=== PATIENT | female | born 1950 | race Asian ===

== ENCOUNTER → 2020-07-17 09:32 | Outpatient (BNVA) | payer OTHER, SELFPAY | PROVIDERS: PCP Internal Medicine; Referring Provider Internal Medicine; Visit Provider Student in an Organized Health Care Education/Training Program | DX: Z13.89 Encounter for screening for other disorder (principal) | CPT/HCPCS: Q3014 ==

== ENCOUNTER 2021-03-09 13:02 | Outpatient (REF) | payer MEDICARE, SELFPAY ==
[2021-03-09 15:14] LABS: Alanine Aminotransferase 19 U/L (0-31); Albumin Level 4.5 g/dL (3.5-5.0); Alkaline Phosphatase 52 U/L (39-117); Anion Gap 12 (12-20); Aspartate Amino Transferase 19 U/L (5-31); Bilirubin Total 0.3 mg/dL (0.0-1.0); Blood Urea Nitrogen 26 mg/dL (9-16); Calcium 9.5 mg/dL (8.4-10.2); Carbon Dioxide 28 mmol/L (22-29); Chloride 103 mmol/L (96-108); Estimated Glomerular Filt Rate > 60; Glucose Random 109 mg/dL (60-115); Potassium 4.2 mmol/L (3.3-5.1); Sodium 139 mmol/L (135-145); Total Protein 7.6 g/dL (6.5-8.0)
== END 2021-03-09 13:03 | disposition home or self-care (01) ==
LOC: HO.LAB 13:02
PROVIDERS: PCP Internal Medicine; Visit Provider Student in an Organized Health Care Education/Training Program
DX: M19.041 Primary osteoarthritis, right hand (principal); M19.042 Primary osteoarthritis, left hand
CPT/HCPCS: 36415; 80053; Q3014

== ENCOUNTER 2021-11-01 12:15 | Outpatient (REF) | payer OTHER, SELFPAY ==
[2021-11-01 14:34] LABS: Alanine Aminotransferase 14 U/L (0-31); Albumin Level 4.2 g/dL (3.5-5.0); Alkaline Phosphatase 46 U/L (39-117); Anion Gap 9 (12-20); Aspartate Amino Transferase 20 U/L (5-31); Bilirubin Total 0.2 mg/dL (0.0-1.0); Blood Urea Nitrogen 23 mg/dL (9-16); Calcium 9.4 mg/dL (8.4-10.2); Carbon Dioxide 33 mmol/L (22-29); Chloride 105 mmol/L (96-108); Estimated Glomerular Filt Rate > 60; Glucose Random 107 mg/dL (60-115); Potassium 4.2 mmol/L (3.3-5.1); Sodium 143 mmol/L (135-145); Total Protein 7.3 g/dL (6.5-8.0)
== END 2021-11-01 12:16 | disposition home or self-care (01) ==
LOC: HO.LAB 12:15
PROVIDERS: PCP Internal Medicine; Visit Provider Nurse Practitioner Family
DX: M19.041 Primary osteoarthritis, right hand (principal); M19.042 Primary osteoarthritis, left hand
CPT/HCPCS: 36415; 80053; 99212

== ENCOUNTER → 2022-05-03 13:09 | Outpatient (BNVA) | payer OTHER, SELFPAY | PROVIDERS: PCP Internal Medicine; Visit Provider Nurse Practitioner Family | DX: M19.041 Primary osteoarthritis, right hand (principal); M19.042 Primary osteoarthritis, left hand | CPT/HCPCS: 99212 ==

== ENCOUNTER 2023-02-10 13:49 | Outpatient (AMB) | payer OTHER, SELFPAY ==
[2023-02-10 13:52] VITALS: BP 116/60; PULSE 72; TEMP 36.5; O2SAT 97; BMI 24.3
--- NOTE | 2023-02-10 13:52 | MHC.OFFVIS ---
Intake Vital Signs 02/10/23 13:52 Height 4 ft 10 in Weight 116 lb 6.465 oz BMI 24.3 BP 116/60 Blood Pressure Location Lt femoral Position Sitting Pulse 72 Pulse Source Pulse Oximeter Temp 97.7 F Temp Source Skin Pulse Oximetry (%) 97 Intake Visit Reasons: bilateral hand osteoarthritis Intake Note: Pt seen today for OA follow up. 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: Yes Bow Making Machine Operator Language: Syriac Bow Making Machine Operator Name: Lacie [id number] Information Interpreted: clinical only Accompanied by: Self / Same As Patient Allergies No Known Allergies Allergy (Verified 02/10/23 14:03) Medication List - Last Reconciled 02/10/23 by Nba Proctor MD albuterol sulfate 90 mcg/actuation 0 mcg inhalation alendronate 70 mg PO QWEEK aspirin 81 mg PO DAILY atorvastatin 20 mg PO DAILY cholecalciferol (vitamin D3) (Vitamin D3) 50 mcg PO DAILY diclofenac sodium 1% (Voltaren Arthritis Pain) 2 grams topical BID levothyroxine 25 mcg PO DAILY lisinopril 20 mg PO DAILY metoprolol succinate ER 25 mg PO DAILY pantoprazole 20 mg PO DAILY prednisolone acetate 1% 0 drps ophthalmic (eye) prednisone take 4 tabs by mouth daily with breakfast for 1 week then 3 tabs daily for 1 week then 2 tabs daily for 1 week then 1 tab daily fir 1 week then stop ticagrelor (Brilinta) 90 mg PO BID HPI HPI Comments History of Present Illness Details This is a 72-year-old female with bilateral hand osteoarthritis, last seen by Isabel Farooq 04/2022. Patient is complaining of bilateral hand pain swelling and stiffness. She has morning stiffness of her hands lasting 15 minutes. Improved with putting her hand under warm order. She has been taking tramadol which does not seem to be helping at the moment. [facility], [facility] Medical History (Updated 02/10/23 @ 17:22 by Nba Proctor MD) History of lung cancer Primary osteoarthritis of hands, bilateral Social History Alcohol intake: never Patient Tobacco Use Status: Never used Tobacco Review of Systems [facility] [place] Reports arthralgias, Reports joint swelling and Reports stiffness Physical Exam Vital Signs: Last Vital Signs Temp 97.7 F 02/10/23 13:52 Pulse 72 02/10/23 13:52 BP 116/60 02/10/23 13:52 Pulse Ox 97 02/10/23 13:52 BMI result Body Mass Index 24.3 Const General: cooperative, healthy appearing and comfortable Nutritional Appearance: average body habitus Orientation/consciousness: patient oriented x3 Limitations: no limitations HEENT Head: Yes normocephalic and Yes atraumatic Resp Effort & Inspection: normal respiratory effort and able to speak in complete sentences Neuro General: patient oriented x3 Extrem Other: Bilateral swelling across the MCPs, nontender and negative MCP squeeze test Left 2nd and 4th PIP tenderness Right 2nd 3rd PIP tenderness No pain with wrist flexion and extension Osteoarthritic changes of both hands with Lashon's and Heberden's nodes normal range of motion of both elbows and shoulders No ankle swelling or tenderness Negative MTP squeeze test Assessment & Plan Assessment & Plan (1) Bilateral hand pain: Code(s): M79.641 - Pain in right hand; M79.642 - Pain in left hand Plan: This is a 72-year-old Syriac female who presents for evaluation of bilateral hand pain. She was previously diagnosed with bilateral hand osteoarthritis which was managed with tramadol and intermittent use of NSAIDs. Patient states that the tramadol is not helping. Upon evaluation patient has significant puffiness of her MCPs bilaterally. I wonder whether she has an underlying inflammatory arthritis. Will repeat bilateral hand x-rays and check comprehensive serology. Start prednisone therapeutic trial Plan I spent 30 minutes reviewing patient's chart, evaluating patient, ordering diagnostic workup, counseling patient and documenting in the chart Orders: Orders XR foot LT min 3V Today M06.9 - Rheumatoid arthritis, unspecified XR foot RT min 3V Today M06.9 - Rheumatoid arthritis, unspecified XR hand wrist LT Today M06.9 - Rheumatoid arthritis, unspecified XR hand wrist RT Today M06.9 - Rheumatoid arthritis, unspecified Complete Blood Count Auto Diff Today M06.9 - Rheumatoid arthritis, unspecified Comprehensive Met. Panel Today M06.9 - Rheumatoid arthritis, unspecified C Reactive Protein Today M06.9 - Rheumatoid arthritis, unspecified Erythrocyte Sedimentation Rate Today M06.9 - Rheumatoid arthritis, unspecified Hepatitis A,B,C Profile Today Z11.59 - Encounter for screening for other viral diseases T Spot TB Today Z11.7 - Encounter for testing for latent tuberculosis infection Immunofixation Pnl, Serum Today M06.9 - Rheumatoid arthritis, unspecified Protein Electrophoresis, Serum Today M06.9 - Rheumatoid arthritis, unspecified Rheumatoid Factor Today M06.9 - Rheumatoid arthritis, unspecified Cyclic Citrullinated Peptide Today M06.9 - Rheumatoid arthritis, unspecified Medications: New prednisone take 4 tabs by mouth daily with breakfast for 1 week then 3 tabs daily for 1 week then 2 tabs daily for 1 week then 1 tab daily fir 1 week then stop 70 tabs 0RF Coding Level of Care Code Est Pt Level 4 (97708) Diagnoses Bilateral hand pain M79.641; M79.642
== END 2023-02-10 14:41 | disposition home or self-care (01) ==
PROVIDERS: PCP Internal Medicine; Visit Provider Student in an Organized Health Care Education/Training Program
DX: M79.641 Pain in right hand (principal); M79.642 Pain in left hand
CPT/HCPCS: 99214

== ENCOUNTER 2023-02-10 13:49 | Outpatient (REF) | payer OTHER, SELFPAY ==
--- NOTE | ~2023-02-10 | XR_ITS ---
EXAMINATION: XR WRIST, LEFT XR HAND, LEFT CLINICAL INFORMATION: Rheumatoid arthritis. COMPARISON: None available. TECHNIQUE: PA, lateral, oblique, and scaphoid views of the left wrist and PA, lateral, and oblique views of the left hand FINDINGS: There are degenerative changes involving the first interphalangeal joint, the second PIP joint, the third MCP joint, and first carpal-metacarpal joint, with joint space narrowing, sclerosis, and osteophyte formation. Joint spaces otherwise appear maintained. No lytic or sclerotic bony lesion is seen. No juxta articular erosion is noted. Bony mineralization appears preserved. XR/XR hand wrist LT IMPRESSION: Degenerative changes suggesting osteoarthritis.
--- NOTE | ~2023-02-10 | XR_ITS ---
EXAMINATION: XR FOOT, RIGHT CLINICAL INFORMATION: Rheumatoid arthritis. COMPARISON: None available. TECHNIQUE: AP, lateral, and oblique views of the right foot. FINDINGS: Hallux valgus. The bones and soft tissues otherwise appear unremarkable. Bony mineralization appears preserved. No juxta articular erosion or subluxation is seen. Joint spaces appear maintained. No fracture appreciated. XR/XR foot RT min 3V IMPRESSION: No radiographic evidence of rheumatoid arthritis.
--- NOTE | ~2023-02-10 | XR_ITS ---
EXAMINATION: XR WRIST, RIGHT XR HAND, RIGHT CLINICAL INFORMATION: Rheumatoid arthritis. COMPARISON: None available. TECHNIQUE: PA, lateral, oblique, and scaphoid views of the right wrist and PA, lateral, and oblique views of the right hand FINDINGS: There are degenerative changes involving the first interphalangeal joint, the second through fourth PIP joints, the third MCP joint, and first carpal-metacarpal joint, with joint space narrowing, sclerosis, and osteophyte formation. Joint spaces otherwise appear maintained. No lytic or sclerotic bony lesion is seen. No juxta articular erosion is noted. Bony mineralization appears preserved. XR/XR hand wrist RT IMPRESSION: Degenerative changes suggesting osteoarthritis.
--- NOTE | ~2023-02-10 | XR_ITS ---
EXAMINATION: XR FOOT, LEFT CLINICAL INFORMATION: Rheumatoid arthritis. COMPARISON: None available. TECHNIQUE: AP, lateral, and oblique views of the left foot. FINDINGS: Hallux valgus. The bones and soft tissues otherwise appear unremarkable. Bony mineralization appears preserved. No juxta articular erosion or subluxation is seen. Joint spaces appear maintained. No fracture appreciated. XR/XR foot LT min 3V IMPRESSION: No radiographic evidence of rheumatoid arthritis.
[2023-02-10 15:13] LABS: MANUAL DIFF FLAG NO
[2023-02-10 16:22] LABS: Basophils Absolute Auto 0.1 X10*3/uL (0.0-0.2); Basophils Percent Auto 0.7 % (0-2); Eosinophils Absolute Auto 0.2 X10*3/uL (0.0-0.4); Eosinophils Percent Auto 2.3 % (0-4); Hematocrit 41.2 % (37.0-47.0); Hemoglobin 12.7 g/dl (12.0-16.0); Imm Gran Abs Auto 0.03 X10*3/uL (0.00-0.03); Imm Gran Pct Auto 0.4 % (0.0-0.4); Lymphocytes Absolute Auto 1.9 X10*3/uL (1.2-4.9); Lymphocytes Percent Auto 26.9 % (20-40); Mean Corpuscular HGB Conc 30.8 g/dl (31.0-35.0); Mean Corpuscular Volume 90.7 fL (80.0-98.0); Mean Platelet Volume 10.8 fL (9.4-12.3); Monocytes Absolute Auto 0.6 X10*3/uL (0.1-1.2); Monocytes Percent Auto 8.2 % (2-11); Neutrophils Absolute Auto 4.3 x10*3/uL (2.0-8.3); Neutrophils Percent Auto 61.5 % (45-73); Platelet Count 255 X10*3/uL (160-400); Red Blood Count 4.54 X10*6/uL (4.20-5.50); Red Cell Distribution Width 14.3 % (11.0-16.0); White Blood Count 6.9 X10*3/uL (4.8-10.8)
[2023-02-10 16:55] LABS: Alanine Aminotransferase 31 U/L (0-31); Albumin Level 4.5 g/dL (3.5-5.0); Alkaline Phosphatase 68 U/L (39-117); Anion Gap 16 (12-20); Aspartate Amino Transferase 29 U/L (5-31); Bilirubin Total 0.3 mg/dL (0.0-1.0); Blood Urea Nitrogen 23 mg/dL (9-16); C Reactive Protein 0.23 mg/dL (< or = 0.50); Calcium 9.8 mg/dL (8.4-10.2); Carbon Dioxide 26 mmol/L (22-29); Chloride 106 mmol/L (96-108); Estimated Glomerular Filt Rate > 60; Glucose Random 95 mg/dL (60-115); Potassium 3.8 mmol/L (3.3-5.1); Rheumatoid Factor < 13.0 IU/mL (<15.0); Sodium 144 mmol/L (135-145)
[2023-02-10 16:57] LABS: Amphetamine Screen Urine Not Detected (Not Detect); Barbiturates, Urine Not Detected (Not Detect); Benzodiazepines Screen Urine Not Detected (Not Detect); Cannabinoid Screen Urine Not Detected (Not Detect); Cocaine Screen Urine Not Detected (Not Detect); Fentanyl, urine Not Detected (Not Detect); Opiate Screen Urine Not Detected (Not Detect); Phencyclidine Screen Urine Not Detected (Not Detect)
[2023-02-10 17:04] LABS: Erythrocyte Sedimentation Rate 28 MM/HR (0-20)
[2023-02-11 04:17] LABS: HBS Num1 0.08 mIU/mL (0-7.99); HBc Num1 0.11 S/CO (0.00-0.79); HBsAGNum1 0.49 S/CO (0.00-0.99); Hepatitis A Antibody IgM 0.31 Index (0-0.79); Hepatitis B Core Antibody Nonreactive (Nonreactive); Hepatitis B Surface Antigen Negative (Negative); ~HepC Num1 0.07 S/CO (0.00-0.79); ~Hepatitis A Antibody IgM Nonreactive (Nonreactive); ~Hepatitis B Surface Antibody NONREACTIVE (Nonreactive); ~Hepatitis C Antibody Nonreactive (Nonreactive)
[2023-02-13 11:44] LABS: Prot Elec - Albumin 4.6 g/dL (3.8-4.8); Prot Elec - Alpha1 0.4 g/dL (0.2-0.3); Prot Elec - Beta 1 0.5 g/dL (0.4-0.6); Prot Elec - Beta 2 0.5 g/dL (0.2-0.5); Prot Elec - Gamma 1.3 g/dL (0.8-1.7); Prot Elec - Total Protein 8.2 g/dL (6.1-8.1)
[2023-02-13 16:19] LABS: TS Negative Control Passed; TS Panel A 3; TS Panel B 0; TS Positive Control Passed; TSpotTB Negative (Negative)
[2023-02-15 12:07] LABS: Desmethyltramadol, Ur NEGATIVE
[2023-02-15 12:08] LABS: Tramadol, Ur NEGATIVE
[2023-02-15 15:39] LABS: Cyclic Citrullinated Peptide <16 UNITS
[2023-02-16 20:53] LABS: IgA 216 mg/dL (70-320); IgG 1355 mg/dL (600-1540); IgM 172 mg/dL (50-300)
== END 2023-02-10 13:50 | disposition home or self-care (01) ==
LOC: HO.XRAY 13:49
PROVIDERS: Nurse Practitioner Family; PCP Internal Medicine; Visit Provider Student in an Organized Health Care Education/Training Program
DX: Z11.7 Encounter for testing for latent tuberculosis infection (principal); Z11.59 Encounter for screening for other viral diseases; Z51.81 Encounter for therapeutic drug level monitoring; M06.9 Rheumatoid arthritis, unspecified; Z72.89 Other problems related to lifestyle; M79.641 Pain in right hand; M79.642 Pain in left hand; Z79.899 Other long term (current) drug therapy
CPT/HCPCS: 36415; 73110; 73130; 73630; 80053; 80307; 80373; 82784; 84165; 85025; 85652; 86140; 86200; 86334; 86431; 86481; 86704; 86706; 86709; 86803; 87340

== ENCOUNTER 2023-04-21 13:28 | Outpatient (AMB) | payer OTHER, SELFPAY ==
--- NOTE | 2023-04-21 13:35 | MHC.OFFVIS ---
Intake Vital Signs 04/21/23 13:36 Height 4 ft 10 in Weight 117 lb 1.047 oz BMI 24.5 BP 120/70 Blood Pressure Location Rt brachial Position Sitting Pulse 108 H Pulse Source Pulse Oximeter Temp 97.7 F Temp Source Skin Pulse Oximetry (%) 100 Intake Visit Reasons: RA/OA Intake Note: Pt presents today for hand OA follow up and test results. Was managing with tramadol but that is not helping. Completed prednisone taper. C/o finger and knuckle pain bl hands Shotblaster Required: Yes Shotblaster Language: Sierra Leonean Shotblaster Name: Mark [id number] Accompanied by: Self / Same As Patient Allergies No Known Allergies Allergy (Verified 04/21/23 13:40) Medication List - Last Reconciled 04/21/23 by Nba Proctor MD albuterol sulfate 90 mcg/actuation 0 mcg inhalation alendronate 70 mg PO QWEEK aspirin 81 mg PO DAILY atorvastatin 20 mg PO DAILY cholecalciferol (vitamin D3) (Vitamin D3) 50 mcg PO DAILY diclofenac sodium 1% (Voltaren Arthritis Pain) 2 grams topical BID folic acid 1 mg PO DAILY levothyroxine 25 mcg PO DAILY lisinopril 20 mg PO DAILY methotrexate sodium 20 mg (8 x 2.5 mg) PO QWEEK metoprolol succinate ER 25 mg PO DAILY pantoprazole 20 mg PO DAILY prednisolone acetate 1% 0 drps ophthalmic (eye) ticagrelor (Brilinta) 90 mg PO BID HPI HPI Comments History of Present Illness Details Patient returns for follow-up after completion of her diagnostic workup. Stated that prednisone taper at least provided 50% relief of her pain. Currently she is having left index PIP and DIP pain. Initial history: This is a 72-year-old female with bilateral hand osteoarthritis, last seen by Isabel Farooq 04/2022. Patient is complaining of bilateral hand pain swelling and stiffness. She has morning stiffness of her hands lasting 15 minutes. Improved with putting her hand under warm order. She has been taking tramadol which does not seem to be helping at the moment. [facility] Medical History History of lung cancer Primary osteoarthritis of hands, bilateral Social History Alcohol intake: never Patient Tobacco Use Status: Never used Tobacco Review of Systems [facility] [place] Reports arthralgias, Reports joint swelling and Reports stiffness Physical Exam Vital Signs: Last Vital Signs Temp 97.7 F 04/21/23 13:36 Pulse 108 H 04/21/23 13:36 BP 120/70 04/21/23 13:36 Pulse Ox 100 04/21/23 13:36 BMI result Body Mass Index 24.5 Const General: cooperative, healthy appearing and comfortable Nutritional Appearance: average body habitus Orientation/consciousness: patient oriented x3 Limitations: no limitations HEENT Head: Yes normocephalic and Yes atraumatic Resp Effort & Inspection: normal respiratory effort and able to speak in complete sentences Neuro General: patient oriented x3 Extrem Other: Bilateral 3rd MCP puffiness without tenderness Negative MCP squeeze test bilaterally Left 2nd PIP swelling and tenderness Left 2nd PIP swelling and tenderness No pain with wrist flexion and extension Osteoarthritic changes of both hands with Lashon's and Heberden's nodes normal range of motion of both elbows and shoulders No ankle swelling or tenderness Negative MTP squeeze test bilateral bunion Assessment & Plan Assessment & Plan (1) Bilateral hand pain: Code(s): M79.641 - Pain in right hand; M79.642 - Pain in left hand Plan: This is a 72-year-old Sierra Leonean female who presents for evaluation of bilateral hand pain. Upon evaluation patient has bilateral MCP puffiness, in addition to osteoarthritic changes of both hands. Labs showed elevated inflammatory markers. Prednisone taper provided at least 50% relief of her pain and swelling. Picture suspicious for new onset seronegative RA in addition to her bilateral hand OA. Will need to start DMARDs. Discussed risks and benefits of methotrexate. Patient agreed to proceed. 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 Panel 2 Months Z79.631 - terminal operations supervisor (current) use of antimetabolite agent Protein Electrophoresis, Serum 2 Months M06.00 - Rheumatoid arthritis without rheumatoid factor, unspecified site C Reactive Protein 2 Months Z79.631 - halfway (current) use of antimetabolite agent Erythrocyte Sedimentation Rate 2 Months Z79.631 - terminal operations supervisor (current) use of antimetabolite agent Immunofixation Pnl, Serum 2 Months M06.00 - Rheumatoid arthritis without rheumatoid factor, unspecified site Medications: New folic acid 1 mg PO DAILY 90 tabs 1RF methotrexate sodium 20 mg (8 x 2.5 mg) PO QWEEK 64 tabs 0RF Coding Level of Care Code Est Pt Level 4 (44554) Diagnoses Bilateral hand pain M79.641; M79.642 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
[2023-04-21 13:36] VITALS: BP 120/70; PULSE 108; TEMP 36.5; O2SAT 100; BMI 24.5
== END 2023-04-21 14:09 | disposition home or self-care (01) ==
PROVIDERS: PCP Internal Medicine; Visit Provider Student in an Organized Health Care Education/Training Program
DX: M79.641 Pain in right hand (principal); M79.642 Pain in left hand; Z79.631 Long term (current) use of antimetabolite agent
CPT/HCPCS: 99214

== ENCOUNTER → 2023-04-21 13:28 | Outpatient (BNVA) | payer OTHER, SELFPAY | PROVIDERS: PCP Internal Medicine; Visit Provider Student in an Organized Health Care Education/Training Program ==

== ENCOUNTER 2023-06-13 09:00 | Outpatient (REF) | payer OTHER, SELFPAY ==
[2023-06-13 09:32] LABS: MANUAL DIFF FLAG NO
[2023-06-13 10:20] LABS: Basophils Percent Auto 0.5 % (0-2); Eosinophils Absolute Auto 0.3 X10*3/uL (0.0-0.4); Eosinophils Percent Auto 4.8 % (0-4); Hematocrit 39.5 % (37.0-47.0); Hemoglobin 12.4 g/dl (12.0-16.0); Imm Gran Abs Auto 0.02 X10*3/uL (0.00-0.03); Imm Gran Pct Auto 0.3 % (0.0-0.4); Lymphocytes Absolute Auto 1.7 X10*3/uL (1.2-4.9); Lymphocytes Percent Auto 26.8 % (20-40); Mean Corpuscular HGB Conc 31.4 g/dl (31.0-35.0); Mean Corpuscular Hemoglobin 28.6 pg (27.0-33.0); Mean Corpuscular Volume 91.2 fL (80.0-98.0); Mean Platelet Volume 9.7 fL (9.4-12.3); Monocytes Absolute Auto 0.4 X10*3/uL (0.1-1.2); Monocytes Percent Auto 6.8 % (2-11); Neutrophils Absolute Auto 3.8 x10*3/uL (2.0-8.3); Neutrophils Percent Auto 60.8 % (45-73); Platelet Count 273 X10*3/uL (160-400); Red Blood Count 4.33 X10*6/uL (4.20-5.50); Red Cell Distribution Width 16.3 % (11.0-16.0); White Blood Count 6.2 X10*3/uL (4.8-10.8)
[2023-06-13 11:06] LABS: Erythrocyte Sedimentation Rate 32 MM/HR (0-20)
[2023-06-13 11:15] LABS: Alanine Aminotransferase 68 U/L (0-31); Albumin Level 4.3 g/dL (3.5-5.0); Alkaline Phosphatase 54 U/L (39-117); Anion Gap 13 (12-20); Aspartate Amino Transferase 29 U/L (5-31); Bilirubin Total 0.5 mg/dL (0.0-1.0); Blood Urea Nitrogen 17 mg/dL (9-16); C Reactive Protein 0.33 mg/dL (< or = 0.50); Calcium 9.6 mg/dL (8.4-10.2); Carbon Dioxide 29 mmol/L (22-29); Chloride 106 mmol/L (96-108); Estimated Glomerular Filt Rate > 60; Glucose Random 104 mg/dL (60-115); Potassium 3.4 mmol/L (3.3-5.1); Sodium 145 mmol/L (135-145); Total Protein 7.6 g/dL (6.5-8.0)
[2023-06-15 21:04] LABS: Prot Elec - Alpha1 0.3 g/dL (0.2-0.3); Prot Elec - Alpha2 0.8 g/dL (0.5-0.9); Prot Elec - Beta 1 0.5 g/dL (0.4-0.6); Prot Elec - Beta 2 0.4 g/dL (0.2-0.5); Prot Elec - Total Protein 6.9 g/dL (6.1-8.1)
[2023-06-19 12:37] LABS: IgA 184 mg/dL (70-320); IgG 1175 mg/dL (600-1540); IgM 130 mg/dL (50-300)
== END 2023-06-13 09:01 | disposition home or self-care (01) ==
LOC: HO.LAB 09:00
PROVIDERS: Visit Provider Student in an Organized Health Care Education/Training Program
DX: M06.00 Rheumatoid arthritis without rheumatoid factor, unspecified site (principal); Z79.631 Long term (current) use of antimetabolite agent
CPT/HCPCS: 36415; 80053; 82784; 84165; 85025; 85652; 86140; 86334

== ENCOUNTER → 2023-06-20 08:31 | Outpatient (BNVA) | payer OTHER, SELFPAY | PROVIDERS: PCP Internal Medicine; Visit Provider Student in an Organized Health Care Education/Training Program ==

== ENCOUNTER 2023-09-15 09:15 | Outpatient (REF) | payer OTHER, SELFPAY ==
[2023-09-15 09:32] LABS: MANUAL DIFF FLAG NO
[2023-09-15 10:01] LABS: Basophils Percent Auto 0.5 % (0-2); Eosinophils Absolute Auto 0.2 X10*3/uL (0.0-0.4); Eosinophils Percent Auto 3.7 % (0-4); Hematocrit 38.8 % (37.0-47.0); Hemoglobin 12.4 g/dl (12.0-16.0); Imm Gran Abs Auto 0.02 X10*3/uL (0.00-0.03); Imm Gran Pct Auto 0.3 % (0.0-0.4); Lymphocytes Absolute Auto 2.4 X10*3/uL (1.2-4.9); Lymphocytes Percent Auto 38.8 % (20-40); Mean Corpuscular Hemoglobin 28.4 pg (27.0-33.0); Mean Corpuscular Volume 88.8 fL (80.0-98.0); Mean Platelet Volume 9.4 fL (9.4-12.3); Monocytes Absolute Auto 0.4 X10*3/uL (0.1-1.2); Monocytes Percent Auto 6.9 % (2-11); Neutrophils Absolute Auto 3.1 x10*3/uL (2.0-8.3); Neutrophils Percent Auto 49.8 % (45-73); Platelet Count 235 X10*3/uL (160-400); Red Blood Count 4.37 X10*6/uL (4.20-5.50); Red Cell Distribution Width 14.6 % (11.0-16.0); White Blood Count 6.3 X10*3/uL (4.8-10.8)
[2023-09-15 10:36] LABS: Erythrocyte Sedimentation Rate 23 MM/HR (0-20)
[2023-09-15 11:21] LABS: Alanine Aminotransferase 20 U/L (0-31); Albumin Level 4.2 g/dL (3.5-5.0); Alkaline Phosphatase 51 U/L (39-117); Anion Gap 11 (12-20); Aspartate Amino Transferase 22 U/L (5-31); Bilirubin Total 0.4 mg/dL (0.0-1.0); Blood Urea Nitrogen 20 mg/dL (9-16); C Reactive Protein 0.18 mg/dL (< or = 0.50); Calcium 9.1 mg/dL (8.4-10.2); Carbon Dioxide 31 mmol/L (22-29); Chloride 108 mmol/L (96-108); Estimated Glomerular Filt Rate > 60; Glucose Random 106 mg/dL (60-115); Potassium 3.3 mmol/L (3.3-5.1); Sodium 147 mmol/L (135-145); Total Protein 7.3 g/dL (6.5-8.0)
== END 2023-09-15 09:16 | disposition home or self-care (01) ==
LOC: HO.LAB 09:15
PROVIDERS: PCP Internal Medicine; Visit Provider Student in an Organized Health Care Education/Training Program
DX: M06.00 Rheumatoid arthritis without rheumatoid factor, unspecified site (principal)
CPT/HCPCS: 36415; 80053; 85025; 85652; 86140

== ENCOUNTER 2023-09-19 08:10 | Outpatient (AMB) | payer OTHER, SELFPAY ==
[2023-09-19 08:30] VITALS: BP 128/78; PULSE 89; TEMP 36; O2SAT 97; BMI 24.0
--- NOTE | 2023-09-19 08:30 | MHC.OFFVIS ---
Intake Vital Signs 09/19/23 08:30 Height 4 ft 10 in Weight 115 lb 1.301 oz BMI 24.0 BP 128/78 Blood Pressure Location Rt brachial Position Sitting Pulse 89 Pulse Source Pulse Oximeter Temp 96.8 F Temp Source Skin Pulse Oximetry (%) 97 Oxygen Delivery Method Room Air Intake Visit Reasons: RA Intake Note: Patient last seen 06/20/23 presents today for follow up and test results. Reports side effects with Plaquenil itchy eyes, high BP. States the prednsione is helping her. Track Laying Equipment Operator Required: Yes Track Laying Equipment Operator Language: Botswanan Track Laying Equipment Operator Name: Brijesh [id number] Accompanied by: Self / Same As Patient Allergies No Known Allergies Allergy (Verified 09/19/23 08:42) Medication List - Last Reconciled 09/19/23 by Nba Proctor MD albuterol sulfate 90 mcg/actuation 0 mcg inhalation alendronate 70 mg PO QWEEK aspirin 81 mg PO DAILY atorvastatin 20 mg PO DAILY cholecalciferol (vitamin D3) (Vitamin D3) 50 mcg PO DAILY diclofenac sodium 1% (Voltaren Arthritis Pain) 2 grams topical BID hydroxychloroquine One tablet daily X 5 days a week and 2 tabs daily X 2 days a week levothyroxine 25 mcg PO DAILY lisinopril 20 mg PO DAILY metoprolol succinate ER 25 mg PO DAILY pantoprazole 20 mg PO DAILY prednisolone acetate 1% 0 drps ophthalmic (eye) prednisone 2 tabs daily for 2 weeks then 1 tab daily for 4 weeks then stop ticagrelor (Brilinta) 90 mg PO BID HPI HPI Comments History of Present Illness Details 73-year-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 Patient states that hydroxychloroquine was not helpful, it caused her eyes to itch and her BP to go up. States that prednisone is helpful, helps with the hand swelling. Initial history: This is a 72-year-old female with bilateral hand osteoarthritis, last seen by Isabel Farooq 04/2022. Patient is complaining of bilateral hand pain swelling and stiffness. She has morning stiffness of her hands lasting 15 minutes. Improved with putting her hand under warm order. She has been taking tramadol which does not seem to be helping at the moment. [facility] Medical History (Updated 09/19/23 @ 09:02 by Nba Proctor MD) History of lung cancer Primary osteoarthritis of hands, bilateral Social History Alcohol intake: never Patient Tobacco Use Status: Never used Tobacco Review of Systems [facility] [place] Reports arthralgias, Reports joint swelling and Reports stiffness Physical Exam Vital Signs: Last Vital Signs Temp 96.8 F 09/19/23 08:30 Pulse 89 09/19/23 08:30 BP 128/78 09/19/23 08:30 Pulse Ox 97 09/19/23 08:30 Oxygen Delivery Method Room Air 09/19/23 08:30 BMI result Body Mass Index 24.0 Const General: cooperative, healthy appearing and comfortable Nutritional Appearance: average body habitus Orientation/consciousness: patient oriented x3 Limitations: no limitations HEENT Head: Yes normocephalic and Yes atraumatic Resp Effort & Inspection: normal respiratory effort and able to speak in complete sentences Neuro General: patient oriented x3 Extrem Other: Osteoarthritic changes of both hands with Lashon's and Heberden's nodes Most significant in the left 2nd PIP where there is significant stiffness normal range of motion of both elbows and shoulders No ankle swelling or tenderness Negative MTP squeeze test bilateral bunion Assessment & Plan Assessment & Plan (1) Primary osteoarthritis of hands, bilateral: Code(s): M19.041 - Primary osteoarthritis, right hand; M19.042 - Primary osteoarthritis, left hand Plan: 73-year-old female with bilateral hand osteoarthritis presents for follow-up. There was some suspicion of seronegative rheumatoid arthritis on top of her osteoarthritis. Methotrexate was prescribed, was not helpful, hydroxychloroquine also not helpful. Prednisone seems to help. Her picture at this point is rather consistent with hand osteoarthritis. Start taking Tylenol Arthritis 650 mg t.i.d.. can take prednisone 2.5 mg once daily as needed for hand pain or swelling. Discuss potential referral to hand surgery for evaluation of her left index PIP. Patient is not interested in the moment labs before next visit in 3 months Plan I spent 30 minutes reviewing patient's chart, evaluating patient, ordering diagnostic workup, counseling patient and documenting in the chart Orders: Orders Complete Blood Count Auto Diff 3 Months Z51.81 - Encounter for therapeutic drug level monitoring Comprehensive Met. Panel 3 Months Z51.81 - Encounter for therapeutic drug level monitoring Medications: New acetaminophen ER (Tylenol Arthritis Pain) 650 mg PO TID 90 tabs 2RF prednisone 2.5 mg PO DAILY PRN 30 tabs 0RF joint pain or swelling Discontinued prednisone Discontinued Reason: Doctor's Order 2 tabs daily for 2 weeks then 1 tab daily for 4 weeks then stop 56 tabs 0RF hydroxychloroquine Discontinued Reason: Doctor's Order One tablet daily X 5 days a week and 2 tabs daily X 2 days a week 108 tabs 1RF Coding Level of Care Code Est Pt Level 4 (91161) Diagnoses Primary osteoarthritis of hands, bilateral M19.041; M19.042
== END 2023-09-19 08:56 | disposition home or self-care (01) ==
PROVIDERS: PCP Internal Medicine; Referring Provider Internal Medicine; Visit Provider Student in an Organized Health Care Education/Training Program
DX: M19.041 Primary osteoarthritis, right hand (principal); M19.042 Primary osteoarthritis, left hand
CPT/HCPCS: 99214

== ENCOUNTER → 2023-09-19 08:10 | Outpatient (BNVA) | payer OTHER, SELFPAY | PROVIDERS: PCP Internal Medicine; Visit Provider Student in an Organized Health Care Education/Training Program ==

== ENCOUNTER 2023-12-15 08:16 | Outpatient (REF) | payer OTHER, SELFPAY ==
[2023-12-15 08:27] LABS: MANUAL DIFF FLAG NO
[2023-12-15 09:05] LABS: Basophils Percent Auto 0.5 % (0-2); Eosinophils Absolute Auto 0.1 X10*3/uL (0.0-0.4); Eosinophils Percent Auto 1.7 % (0-4); Hemoglobin 13.4 g/dl (12.0-16.0); Imm Gran Abs Auto 0.04 X10*3/uL (0.00-0.03); Imm Gran Pct Auto 0.5 % (0.0-0.4); Lymphocytes Absolute Auto 2.6 X10*3/uL (1.2-4.9); Lymphocytes Percent Auto 33.4 % (20-40); Mean Corpuscular HGB Conc 32.7 g/dl (31.0-35.0); Mean Corpuscular Hemoglobin 29.1 pg (27.0-33.0); Mean Corpuscular Volume 88.9 fL (80.0-98.0); Monocytes Absolute Auto 0.4 X10*3/uL (0.1-1.2); Monocytes Percent Auto 5.6 % (2-11); Neutrophils Absolute Auto 4.6 x10*3/uL (2.0-8.3); Neutrophils Percent Auto 58.3 % (45-73); Platelet Count 265 X10*3/uL (160-400); Red Blood Count 4.61 X10*6/uL (4.20-5.50); Red Cell Distribution Width 15.9 % (11.0-16.0); White Blood Count 7.8 X10*3/uL (4.8-10.8)
[2023-12-15 09:45] LABS: Alanine Aminotransferase 20 U/L (0-31); Albumin Level 4.5 g/dL (3.5-5.0); Alkaline Phosphatase 63 U/L (39-117); Anion Gap 14 (12-20); Aspartate Amino Transferase 23 U/L (5-31); Bilirubin Total 0.3 mg/dL (0.0-1.0); Blood Urea Nitrogen 26 mg/dL (9-16); Calcium 9.6 mg/dL (8.4-10.2); Carbon Dioxide 26 mmol/L (22-29); Chloride 106 mmol/L (96-108); Estimated Glomerular Filt Rate > 60; Glucose Random 122 mg/dL (60-115); Potassium 4.1 mmol/L (3.3-5.1); Sodium 142 mmol/L (135-145)
== END 2023-12-15 08:17 | disposition home or self-care (01) ==
LOC: HO.LAB 08:16
PROVIDERS: PCP Internal Medicine; Visit Provider Student in an Organized Health Care Education/Training Program
DX: Z51.81 Encounter for therapeutic drug level monitoring (principal)
CPT/HCPCS: 36415; 80053; 85025

== ENCOUNTER 2023-12-19 08:14 | Outpatient (AMB) | payer OTHER, SELFPAY ==
[2023-12-19 08:13] VITALS: BP 126/70; PULSE 80; O2SAT 97; BMI 24.0
--- NOTE | 2023-12-19 08:13 | MHC.OFFVIS ---
Vital Signs 12/19/23 08:13 Height 4 ft 10 in Weight 114 lb 13.773 oz BMI 24.0 BP 126/70 Blood Pressure Location Rt brachial Position Sitting Pulse 80 Pulse Source Pulse Oximeter Pulse Oximetry (%) 97 Oxygen Delivery Method Room Air Intake Visit Reasons: hand OA Intake Note: Patient last seen 09/19/23 presents today for follow up and test results. Stave Inspector Required: Yes Stave Inspector Language: Maori Stave Inspector Name: Donny Norman [id number] Information Interpreted: clinical only Accompanied by: Self / Same As Patient Allergies No Known Allergies Allergy (Verified 12/19/23 08:25) Medication List - Last Reconciled 12/19/23 by Nba Proctor MD acetaminophen ER (Tylenol Arthritis Pain) 650 mg PO TID albuterol sulfate 90 mcg/actuation 0 mcg inhalation alendronate 70 mg PO QWEEK anastrozole 1 mg PO DAILY aspirin 81 mg PO DAILY atorvastatin 20 mg PO DAILY cholecalciferol (vitamin D3) (Vitamin D3) 50 mcg PO DAILY diclofenac sodium 1% (Voltaren Arthritis Pain) 2 grams topical BID levothyroxine 25 mcg PO DAILY lisinopril 20 mg PO DAILY metoprolol succinate ER 25 mg PO DAILY pantoprazole 20 mg PO DAILY prednisolone acetate 1% 0 drps ophthalmic (eye) prednisone 2.5 mg PO DAILY PRN ticagrelor (Brilinta) 90 mg PO BID HPI Comments Details: 73-year-old female bilateral hand osteoarthritis returns for follow-up. She states that she was evaluated by a hand surgeon 2 months ago and received a steroid injection in her left index PIP. The injection helped for about a week. She states that she takes the prednisone daily, does not take the Tylenol as prescribed. She states that she used to take NSAID (Arcoxia) regularly, which was helpful no one is prescribing it anymore. She is doing well otherwise Initial history: This is a 72-year-old female with bilateral hand osteoarthritis, last seen by Isabel Farooq 04/2022. Patient is complaining of bilateral hand pain swelling and stiffness. She has morning stiffness of her hands lasting 15 minutes. Improved with putting her hand under warm order. She has been taking tramadol which does not seem to be helping at the moment. [facility] Medical History History of lung cancer Primary osteoarthritis of hands, bilateral Social History Alcohol intake: never Patient Tobacco Use Status: Never used Tobacco Review of Systems [facility] [place] Reports arthralgias, Reports joint swelling and Reports stiffness Physical Exam Vital Signs: Last Vital Signs Pulse 80 12/19/23 08:13 BP 126/70 12/19/23 08:13 Pulse Ox 97 12/19/23 08:13 Oxygen Delivery Method Room Air 12/19/23 08:13 BMI result Body Mass Index 24.0 Const General: cooperative, healthy appearing and comfortable Nutritional Appearance: average body habitus Orientation/consciousness: patient oriented x3 Limitations: no limitations HEENT Head: Yes normocephalic and Yes atraumatic Resp Effort & Inspection: normal respiratory effort and able to speak in complete sentences Neuro General: patient oriented x3 Extrem Other: Osteoarthritic changes of both hands with Lashon's and Heberden's nodes Most significant in the left 2nd PIP where there is significant stiffness normal range of motion of both elbows and shoulders No ankle swelling or tenderness Negative MTP squeeze test bilateral bunion Assessment & Plan Assessment & Plan (1) Primary osteoarthritis of hands, bilateral: Comment: There was some suspicion of seronegative rheumatoid arthritis on top of her osteoarthritis. Methotrexate was prescribed, was not helpful, hydroxychloroquine also not helpful. Code(s): M19.041 - Primary osteoarthritis, right hand; M19.042 - Primary osteoarthritis, left hand Category: Medical Plan: 73-year-old female with bilateral hand osteoarthritis presents for follow-up. She had a steroid injection in her left index PIP 2 months ago which helped for about a week. She is taking prednisone 2.5 mg daily. Does not take the Tylenol as prescribed. Advised patient to start taking Tylenol 650 mg t.i.d.. As well as prednisone 2.5 mg daily. Labs before next visit in 6 months Plan I spent 20 minutes reviewing patient's chart, evaluating patient, ordering diagnostic workup, counseling patient and documenting in the chart Orders: Orders C Reactive Protein 6 Months M19.041 - Primary osteoarthritis, right hand, M19.042 - Primary osteoarthritis, left hand Erythrocyte Sedimentation Rate 6 Months M19.041 - Primary osteoarthritis, right hand, M19.042 - Primary osteoarthritis, left hand Complete Blood Count Auto Diff 6 Months M19.041 - Primary osteoarthritis, right hand, M19.042 - Primary osteoarthritis, left hand Comprehensive Met. Panel 6 Months M19.041 - Primary osteoarthritis, right hand, M19.042 - Primary osteoarthritis, left hand Medications: Refilled acetaminophen ER (Tylenol Arthritis Pain) 650 mg PO TID 270 tabs 1RF prednisone 2.5 mg PO DAILY PRN 90 tabs 1RF for joint pain Coding Level of Care Code Est Pt Level 3 (51173) Diagnoses Primary osteoarthritis of hands, bilateral M19.041; M19.042
== END 2023-12-19 08:38 | disposition home or self-care (01) ==
PROVIDERS: PCP Internal Medicine; Visit Provider Student in an Organized Health Care Education/Training Program
DX: M19.041 Primary osteoarthritis, right hand (principal); M19.042 Primary osteoarthritis, left hand
CPT/HCPCS: 99213

== ENCOUNTER → 2023-12-19 08:14 | Outpatient (BNVA) | payer OTHER, SELFPAY | PROVIDERS: PCP Internal Medicine; Visit Provider Student in an Organized Health Care Education/Training Program ==

== ENCOUNTER 2024-07-05 09:12 | Outpatient (REF) | payer OTHER, SELFPAY ==
[2024-07-05 09:33] LABS: MANUAL DIFF FLAG NO
[2024-07-05 11:03] LABS: Basophils Percent Auto 0.2 % (0-2); Eosinophils Absolute Auto 0.1 X10*3/uL (0.0-0.4); Eosinophils Percent Auto 1.1 % (0-4); Hematocrit 40.3 % (37.0-47.0); Hemoglobin 13.1 g/dl (12.0-16.0); Imm Gran Abs Auto 0.04 X10*3/uL (0.00-0.03); Imm Gran Pct Auto 0.4 % (0.0-0.4); Lymphocytes Absolute Auto 2.1 X10*3/uL (1.2-4.9); Lymphocytes Percent Auto 21.4 % (20-40); Mean Corpuscular HGB Conc 32.5 g/dl (31.0-35.0); Mean Corpuscular Hemoglobin 29.2 pg (27.0-33.0); Monocytes Absolute Auto 0.7 X10*3/uL (0.1-1.2); Monocytes Percent Auto 7.4 % (2-11); Neutrophils Percent Auto 69.5 % (45-73); Platelet Count 217 X10*3/uL (160-400); Red Blood Count 4.48 X10*6/uL (4.20-5.50); Red Cell Distribution Width 15.5 % (11.0-16.0)
[2024-07-05 11:48] LABS: Alanine Aminotransferase 29 U/L (0-31); Albumin Level 4.2 g/dL (3.5-5.0); Alkaline Phosphatase 52 U/L (39-117); Anion Gap 14 (12-20); Aspartate Amino Transferase 30 U/L (5-31); Bilirubin Total 0.4 mg/dL (0.0-1.0); Blood Urea Nitrogen 29 mg/dL (9-16); C Reactive Protein 0.13 mg/dL (< or = 0.50); Calcium 9.2 mg/dL (8.4-10.2); Carbon Dioxide 26 mmol/L (22-29); Chloride 107 mmol/L (96-108); Estimated Glomerular Filt Rate > 60; Glucose Random 94 mg/dL (60-115); Potassium 3.7 mmol/L (3.3-5.1); Sodium 143 mmol/L (135-145); Total Protein 7.6 g/dL (6.5-8.0)
[2024-07-05 11:52] LABS: Erythrocyte Sedimentation Rate 19 MM/HR (0-20)
== END 2024-07-05 09:13 | disposition home or self-care (01) ==
LOC: HO.LAB 09:12
PROVIDERS: PCP Internal Medicine; Visit Provider Student in an Organized Health Care Education/Training Program
DX: M19.041 Primary osteoarthritis, right hand (principal); M19.042 Primary osteoarthritis, left hand
CPT/HCPCS: 36415; 80053; 85025; 85652; 86140

== ENCOUNTER 2024-07-08 09:05 | Outpatient (AMB) | payer OTHER, SELFPAY ==
--- NOTE | 2024-07-08 09:08 | MHC.OFFVIS ---
Vital Signs 07/08/24 09:15 Height 4 ft 10 in Weight 117 lb 8.102 oz BMI 24.6 BP 120/60 Blood Pressure Location Rt brachial Position Sitting Pulse 79 Pulse Source Pulse Oximeter Pulse Oximetry (%) 97 Oxygen Delivery Method Room Air Intake Visit Reasons: Hand OA Intake Note: Patient presents for OA. Bank Courier Required: Yes Bank Courier Language: [place] Bank Courier Services: Bank Courier Present Bank Courier Name: [id number] Information Interpreted: non-clinical & clinical Allergies No Known Allergies Allergy (Verified 07/08/24 09:15) Medication List - Last Reconciled 07/08/24 by Nba Proctor MD acetaminophen ER 650 mg PO TID albuterol sulfate 90 mcg/actuation 0 mcg inhalation alendronate 70 mg PO QWEEK anastrozole 1 mg PO DAILY aspirin 81 mg PO DAILY atorvastatin 20 mg PO DAILY cholecalciferol (vitamin D3) (Vitamin D3) 50 mcg PO DAILY diclofenac sodium 1% (Voltaren Arthritis Pain) 2 grams topical BID levothyroxine 25 mcg PO DAILY lisinopril 20 mg PO DAILY metoprolol succinate ER 25 mg PO DAILY pantoprazole 20 mg PO DAILY prednisolone acetate 1% 0 drps ophthalmic (eye) prednisone 2.5 mg PO DAILY PRN ticagrelor (Brilinta) 90 mg PO BID HPI Comments Details: 74-year-old female bilateral hand osteoarthritis returns for follow-up. She remains on prednisone 2.5 mg daily. States that she feels about the same overall. The left 2nd finger PIP is intermittently symptomatic, she gets triggering of her left ring finger. She denies any history of falls or fractures Initial history: This is a 72-year-old female with bilateral hand osteoarthritis, last seen by Isabel Farooq 04/2022. Patient is complaining of bilateral hand pain swelling and stiffness. She has morning stiffness of her hands lasting 15 minutes. Improved with putting her hand under warm order. She has been taking tramadol which does not seem to be helping at the moment. [facility] Medical History History of lung cancer Primary osteoarthritis of hands, bilateral Social History Alcohol intake: never Patient Tobacco Use Status: Never used Tobacco Review of Systems [facility] Reports arthralgias, Reports limited range of motion and Reports stiffness Physical Exam Vital Signs: Last Vital Signs Pulse 79 07/08/24 09:15 BP 120/60 07/08/24 09:15 Pulse Ox 97 07/08/24 09:15 Oxygen Delivery Method Room Air 07/08/24 09:15 BMI result Body Mass Index 24.6 Const General: cooperative, healthy appearing and comfortable Nutritional Appearance: average body habitus Orientation/consciousness: patient oriented x3 Limitations: no limitations HEENT Head: Yes normocephalic and Yes atraumatic Resp Effort & Inspection: normal respiratory effort and able to speak in complete sentences Neuro General: patient oriented x3 Extrem Other: Osteoarthritic changes of both hands with Lashon's and Heberden's nodes Most significant in the left 2nd PIP where there is significant stiffness Triggering of left ring finger normal range of motion of both elbows and shoulders No ankle swelling or tenderness Negative MTP squeeze test bilateral bunion Assessment & Plan Assessment & Plan (1) Primary osteoarthritis of hands, bilateral: Comment: There was some suspicion of seronegative rheumatoid arthritis on top of her osteoarthritis. Methotrexate was prescribed, was not helpful, hydroxychloroquine also not helpful. Code(s): M19.041 - Primary osteoarthritis, right hand; M19.042 - Primary osteoarthritis, left hand Category: Medical Plan: 74-year-old female with bilateral hand osteoarthritis presents for follow-up. She remains on prednisone 2.5 mg daily. Symptoms overall well controlled. Labs before next visit in 6 months (2) Long-term corticosteroid use: Code(s): Z79.52 - [facility] (current) use of systemic steroids Category: Medical Plan: Discussed long-term side effects of steroid use including fragile ball, fragile skin, increased risk of hypertension, cataracts, weight gain, glaucoma. Advised patient to follow-up regularly with risk management director. Patient has been on alendronate, prescribed by PCP for a few years now, , she is a poor historian but I believe it was started around 2019/2020. Will check DEXA scan before next visit (3) Left trigger finger: Code(s): M65.30 - Trigger finger, unspecified finger Category: Medical Qualifiers: Trigger finger location: ring finger Qualified Code(s): M65.342 - Trigger finger, left ring finger Plan: Discussed different treatment options. Such as referral for occupational therapy, OTC finger splints and steroid injection. Patient will buy OTC finger splints Plan I spent 25 minutes reviewing patient's chart, evaluating patient, ordering diagnostic workup, counseling patient and documenting in the chart Orders: Orders Parathyroid Hormone Intact 6 Months M81.0 - Age-related osteoporosis without current pathological fracture Collagen Type I C-Telopeptide 6 Months M81.0 - Age-related osteoporosis without current pathological fracture Vitamin D 25-OH Total 6 Months M81.0 - Age-related osteoporosis without current pathological fracture TSH reflex Free T4 6 Months M81.0 - Age-related osteoporosis without current pathological fracture XR DEXA axial skeleton 4 Months M81.0 - Age-related osteoporosis without current pathological fracture Complete Blood Count Auto Diff 6 Months M35.3 - Polymyalgia rheumatica Comprehensive Met. Panel 6 Months M35.3 - Polymyalgia rheumatica C Reactive Protein 6 Months M35.3 - Polymyalgia rheumatica Erythrocyte Sedimentation Rate 6 Months M35.3 - Polymyalgia rheumatica Medications: Refilled prednisone 2.5 mg PO DAILY PRN 90 tabs 1RF for joint pain Coding Level of Care Code Est Pt Level 4 (46577) Complex EM visit Add On G2211 Diagnoses Primary osteoarthritis of hands, bilateral M19.041; M19.042 Long-term corticosteroid use Z79.52 Trigger ring finger of left hand M65.342 Trigger finger location: ring finger
[2024-07-08 09:15] VITALS: BP 120/60; PULSE 79; O2SAT 97; BMI 24.6
== END 2024-07-08 09:35 | disposition home or self-care (01) ==
PROVIDERS: PCP Internal Medicine; Visit Provider Student in an Organized Health Care Education/Training Program
DX: M19.041 Primary osteoarthritis, right hand (principal); M19.042 Primary osteoarthritis, left hand; Z79.52 Long term (current) use of systemic steroids; M65.342 Trigger finger, left ring finger
CPT/HCPCS: 99214; G2211

== ENCOUNTER → 2024-07-08 09:05 | Outpatient (BNVA) | payer OTHER, SELFPAY | PROVIDERS: PCP Internal Medicine; Visit Provider Student in an Organized Health Care Education/Training Program ==